=== PATIENT | female | born 1965 | race Caucasian/White ===

== ENCOUNTER → 2020-05-27 12:07 | Outpatient (CLI) | payer BC, SELFPAY ==
--- NOTE | ~2020-05-27 | XR_ITS ---
XR hip RT min 3V w AP pelvis DATE: 05/27/2020 13:11 INDICATION: Right hip pain TECHNIQUE: AP and lateral views of right hip. AP pelvis. COMPARISON: None FINDINGS: Osteopenia. The pubic symphysis and sacroiliac joints are intact, although there is some degenerative change at t he right sacroiliac joint. No pelvic fracture or bone destruction is evident. There are bilateral lower abdominal and pelvic surgical clips. There is mild right hip osteoarthritis. No fracture, dislocation, avascular necrosis or bone destruct ion of the right hip. IMPRESSION: Degenerative change of the right sacroiliac joint Mild right hip osteoarthritis Osteopenia Reviewed, dictated and finalized at location A.
--- NOTE | ~2020-05-27 | XR_ITS ---
XR lumbar spine min 4V DATE: 05/27/2020 13:11 INDICATION: Back pain TECHNIQUE: AP, lateral, bilateral oblique and coned lateral lumbosacral views COMPARISON: None FINDINGS: There is diffuse osteopenia. There is minimal levoscoliosis of the lumbar spine. There is moderate anterior wedge compression fracture deformity of T12. No fracture or bone destruction of the lumbar spine is evident. No spondylolisthesis or spondylolisth esis. The lower thoracic and lumbar pedicles are intact. There is moderately prominent degenerative disc disease at L1-L2 3, mild degenerative disease at L3-4 and L4-5. There is degenerative change at the sacroiliac joints. Right upper quadrant and bilateral lower abdomen and pelvic surgical clips are noted. IMPRESSION: Old T12 compression fracture deformity Diffuse osteopenia Degenerative changes of the lower thoracic and lumbar spine Reviewed, dictated and finalized at location A.
--- NOTE | ~2020-05-27 | DEXA_ITS ---
Bone Density Report Name: Candice Lucas Age: 54 Sex: Female Ethnicity: White Date of : 1965 Indication: postmenopausal; screening for osteoporosis; height loss; hysterectomy; Referring Provider: PAVAN BENEDICT Study: Bone densitometry was performed. Exam Date: May 27, 2020 Accession number: [id number] Bone Density: Region BMD T-score Z-score Classification AP Spine (L1-L4) 0.907 -1.3 -0.2 Osteopenia Femoral Neck (Left) 0.725 -1.1 -0.1 Osteopenia Total Hip (Left) 0.821 -1.0 -0.3 Normal Femoral Neck (Right) 0.753 -0.9 0.2 Normal Total Hip (Right) 0.858 -0.7 0.0 Normal Total Hip Mean 0.840 -0.9 -0.2 Normal World Health Organization criteria for BMD impression classify patients as: Normal (T-score at or above -1.0), Osteopenia (T-score between -1.0 and -2.5), or Osteoporosis (T-score at or below -2.5). 10-year Fracture Risk(1): Major Osteoporotic Fracture 5.0% Hip Fracture 0.4% Reported Risk Factors: [place] (), Neck BMD=0.725, BMI=40.5, smoking (1) FRAX(R) Version 3.08. Fracture probability calculated for an untreated patient. Fracture probability may be lower if the patient has received treatment. Clinical Information Provided by Patient: Smokes Has used the following medications: Vitamin D Has the following medical conditions: Hysterectomy Patient maximum height was 65 Menopause Age: 36 No regular weight bearing exercise Does not regularly consume dairy products Drinks caffeinated beverages Onset of menses at age 12 Number of children 1 Missed period for more than 6 months in a row Impression: The patient has low bone mass, based on the Total Spine T-score. The patient has an estimated ten-year risk of hip fracture of 0.4% and an estimated ten-year risk of major fracture of 5%, based on the WHO FRAX algorithm. The patient has risk factors, including: smoking. Discussion: BONE DENSITY IS LOW AT ONE OR MORE SKELETAL SITES. This patient's lowest T-score is low at one or more skeletal sites. It meets the World Health Organization's (WHO) criteria for ?low bone mass? (T-score between -1.0 and -2.5). The patient's 10-year risk of fracture as calculated by FRAX is less than the threshold where pharmacological therapy is recommended by the National Osteoporosis Foundation (NOF). However, all treatment decisions require clinical judgment and consideration of individual patient factors, including patient preferences, comorbidities, previous drug use, risk factors not captured in the FRAX model (e.g., frailty, falls, vitamin D deficiency, increased bone turnover, interval significant decline in bone density) and possible under or overestimation of fracture risk by FRAX. The patient should follow a healthful lifestyle (good nutrition with adequate calcium and vitamin D, and appropr
== END ==
PROVIDERS: PCP Family Medicine; Visit Provider Family Medicine
DX: M16.11 Unilateral primary osteoarthritis, right hip (principal); M85.851 Other specified disorders of bone density and structure, right thigh; M85.88 Other specified disorders of bone density and structure, other site; M51.34 Other intervertebral disc degeneration, thoracic region; M51.36 Other intervertebral disc degeneration, lumbar region; M85.852 Other specified disorders of bone density and structure, left thigh
CPT/HCPCS: 72110; 73502; 77080

== ENCOUNTER 2022-01-04 11:07 | Outpatient (CLI) | payer BC, SELFPAY ==
--- NOTE | ~2022-01-04 | CT_ITS ---
EXAMINATION: CT lung screening DATE: 01/04/2022 11:35 INDICATION: Personal history of nicotine dependence, current smoker with 21 pack year history TECHNIQUE: Computed tomography (CT) of the chest was performed without intravenous contrast. The dose -length product (DLP) was 249.33 mGy-cm. Automated exposure control and iterative reconstruction tech [employer] were employed. COMPARISON: None FINDINGS: There is mild emphysema. No suspicious pulmonary nodules are identified. The lungs are free of acute opacities. There is no pleural effusion or pneumothorax. There is a mildly enlarged precari nal lymph node, likely reactive. The heart size is normal. There is severe thoracic spondylosis. Ther e is a chronic T12 compression fracture. The gallbladder is surgically absent. IMPRESSION: 1. Lung-RADS category 1: Negative. Continue annual screening with noncontrast low-dose chest CT in 12 months. Reviewed, dictated and finalized at location B. IMPRESSION: 1. Lung-RADS category 1: Negative. Continue annual screening with noncontrast l ow-dose chest CT in 12 months.
== END 2022-01-04 11:08 | disposition home or self-care (01) ==
PROVIDERS: PCP Family Medicine; Visit Provider Family Medicine
DX: Z12.2 Encounter for screening for malignant neoplasm of respiratory organs (principal); Z87.891 Personal history of nicotine dependence
CPT/HCPCS: 71271